=== PATIENT | male | born 1990 | race Caucasian/White ===

== ENCOUNTER 2018-02-04 20:30 | Emergency (ER) | payer MEDICAID ==
[~2018-02-04] VITALS: Ht 193 cm; Wt 83.9 kg
--- NOTE | 2018-02-04 20:48 | NUR ---
PT AMBULATORY TO ER BED 13. BIBSELF C/O HIVES ON ABD X 3 WKS, PER ENCINO MEDICATED PT WITH SCABIES CREAM, NO RELIEF, TAKES BENYDRYL WITH RELIEF. DENIES SOB. 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 VSS/RESP EVEN UNLABORED/NAD NOTED/SKIN WARM AND DRY/AFEBRILE/DENIES N-V-D/AOX4. AWAITNG MD GOLDSMITH.
[2018-02-04] MEDS ORDERED: methylPREDNISolone ACETATE 80 MG/ML VIAL IM ONE (21:00)
[2018-02-04] MEDS ORDERED: methylPREDNISolone ACETATE 80 MG/ML VIAL ONE (21:20)
--- NOTE | 2018-02-04 21:30 | NUR ---
Patient discharged to home in stable condition. Written and verbal after care instructions given. Patient verbalizes understanding of instruction. Patient ambulatory with a steady gait.
[2018-02-04 21:31] VITALS: BP 124/76
== END 2018-02-04 21:32 | disposition home or self-care (01) ==
LOC: ER 20:35
DX: L50.9 Urticaria, unspecified (principal); F41.9 Anxiety disorder, unspecified; Z60.2 Problems related to living alone
CPT/HCPCS: A4606; J1040; Z7610